=== PATIENT | male | born 1980 | race Hispanic/Latino ===

== ENCOUNTER 2020-07-06 12:59 | Emergency (ER) | payer SELFPAY ==
[2020-07-06 16:41] VITALS: BP 129/75
--- NOTE | 2020-07-06 16:50 | Emergency Department Report ---
ED Extremity Problem HPI - General Chief complaint: Extremity Injury, Lower Stated complaint: FOOT INJURY Time Seen by Provider: 07/06/20 16:37 Source: patient Mode of arrival: Ambulatory Limitations: No Limitations - History of Present Illness Initial comments: Patient is a 39-year-old male presents emergency room complaints of right big toe swelling and pain for the last month and a half. He states he has had this intermittently since having a toe fracture approximately 15 years ago. He states that he was out mowing grass about a month and a half ago and believes he twisted it. He states since then he has had some redness and swelling present. He states that it comes and goes. He denies any fever, chills, nausea, vomiting, diarrhea drainage, numbness, weakness. No past medical history. No allergies medications. - Related Data Previous Rx's Medication Instructions Recorded Last Taken Type Ibuprofen [Motrin] 600 mg PO Q6H PRN #20 tablet 04/23/13 Unknown Rx methOCARBAMOL [Robaxin] 750 mg PO BID #14 tab 04/23/13 Unknown Rx traMADoL [Ultram] 50 mg PO Q6HR PRN #20 tablet 04/23/13 Unknown Rx guaiFENesin/DEXTROMETHORPHAN 10 ml PO Q4HR PRN #118 ml 04/20/16 Unknown Rx [Adult Robitussin Peak Cold Dm] Mupirocin [Bactroban 2% OINT] 1 applic TP TID #1 tube 07/06/20 Unknown Rx Sulfamethoxazole/Trimethoprim 1 each PO BID 7 Days #14 tablet 07/06/20 Unknown Rx [Bactrim DS TAB] Allergies Allergy/AdvReac Type Severity Reaction Status Date / Time No Known Allergies Allergy Verified 07/06/20 16:38 ED Review of Systems ROS: Stated complaint: FOOT INJURY Other details as noted in HPI Comment: All other systems reviewed and negative ED Past Medical Hx - Past Medical History Previous Medical History?: No - Surgical History Additional Surgical History: JAW - Social History Smoking Status: Current Every Day Smoker Substance Use Type: None - Medications Home Medications: Home Medications Medication Instructions Recorded Confirmed Last Taken Type Ibuprofen [Motrin] 600 mg PO Q6H PRN #20 tablet 04/23/13 Unknown Rx methOCARBAMOL [Robaxin] 750 mg PO BID #14 tab 04/23/13 Unknown Rx traMADoL [Ultram] 50 mg PO Q6HR PRN #20 tablet 04/23/13 Unknown Rx guaiFENesin/DEXTROMETHORPHAN 10 ml PO Q4HR PRN #118 ml 04/20/16 Unknown Rx [Adult Robitussin Peak Cold Dm] Mupirocin [Bactroban 2% OINT] 1 applic TP TID #1 tube 07/06/20 Unknown Rx Sulfamethoxazole/Trimethoprim 1 each PO BID 7 Days #14 tablet 07/06/20 Unknown Rx [Bactrim DS TAB] ED Physical Exam - General Limitations: No Limitations General appearance: alert, in no apparent distress - Head Head exam: Present: atraumatic, normocephalic - Eye Eye exam: Present: normal appearance - ENT ENT exam: Present: mucous membranes moist - Respiratory Respiratory exam: Absent: respiratory distress, accessory muscle use - Extremities Exam Extremities exam: Present: other (edema and mild erythema present to the right big toe and right big toe MCP region, no increased warmth, no induration or fluctuance, FROM of the right ankle, foot, and toes, neurovascularly intact, small insect bite to the right lateral foot just below the right big toe) - Neurological Exam Neurological exam: Present: alert, oriented X3 - Psychiatric Psychiatric exam: Present: normal affect, normal mood - Skin Skin exam: Present: warm, dry ED Course Vital Signs 07/06/20 16:40 Temperature 97.6 F Pulse Rate 83 Respiratory 18 Rate Blood Pressure 129/75 O2 Sat by Pulse 100 Oximetry ED Medical Decision Making - Lab Data Result diagrams: 07/06/20 17:01 07/06/20 17:01 Lab Results 07/06/20 07/06/20 Range/Units 17:01 17:01 WBC 13.0 H (4.5-11.0) K/mm3 RBC 5.28 H (3.65-5.03) M/mm3 Hgb 15.2 (11.8-15.2) gm/dl Hct 46.0 H (35.5-45.6) % MCV 87 (84-94) fl MCH 29 (28-32) pg MCHC 33 (32-34) % RDW 12.6 L (13.2-15.2) % Plt Count 404 (140-440) K/mm3 Lymph % (Auto) 28.8 (13.4-35.0) % Gentry % (Auto) 5.9 (0.0-7.3) % Eos % (Auto) 1.5 (0.0-4.3) % Baso % (Auto) 0.4 (0.0-1.8) % Lymph # (Auto) 3.7 (1.2-5.4) K/mm3 Gentry # (Auto) 0.8 (0.0-0.8) K/mm3 Eos # (Auto) 0.2 (0.0-0.4) K/mm3 Baso # (Auto) 0.1 (0.0-0.1) K/mm3 Seg Neutrophils % 63.4 (40.0-70.0) % Seg Neutrophils # 8.2 H (1.8-7.7) K/mm3 Sodium 135 L (137-145) mmol/L Potassium 4.0 (3.6-5.0) mmol/L Chloride 96.9 L (98-107) mmol/L Carbon Dioxide 31 H (22-30) mmol/L Anion Gap 11 mmol/L BUN 10 (9-20) mg/dL Creatinine 0.7 L (0.8-1.3) mg/dL Estimated GFR > 60 ml/min BUN/Creatinine Ratio 14 % Glucose 86 (75-100) mg/dL Uric Acid 7.0 (3.5-7.6) mg/dL Calcium 9.3 (8.4-10.2) mg/dL Total Bilirubin 0.30 (0.1-1.2) mg/dL AST 21 (5-40) units/L ALT 26 (7-56) units/L Alkaline Phosphatase 71 (35-129) units/L C-Reactive Protein 0.30 (0.00-1.30) mg/dL Total Protein 7.5 (6.3-8.2) g/dL Albumin 4.4 (3.9-5) g/dL Albumin/Globulin Ratio 1.4 % - Radiology Data Radiology results: report reviewed Ordering Physician: ELVIA MUNROE Date of Service: 07/06/20 Procedure(s): XR foot 3+V RT Accession Number(s): [id number] cc: ELVIA MUNROE Fluoro Time In Minutes: RIGHT FOOT 3 VIEWS INDICATION / CLINICAL INFORMATION: right big toe swelling and pain COMPARISON: None available. FINDINGS: BONES and JOINT(S): No acute fracture or subluxation. No significant arthritis. SOFT TISSUES: There is mild edema along the right first toe without other significant abnormalities. ADDITIONAL FINDINGS: None. IMPRESSION: Mild right first toe edema. Signer Name: Alejandro Lemon MD Signed: 07/06/2020 5:02 PM Workstation Name: [id number] Transcribed By: MN Dictated By: Alejandro Lemon MD Electronically Authenticated By: Alejandro Lemon MD Signed Date/Time: 07/06/201701 DD/ 01 TD/TT: Print Cancel - Medical Decision Making Patient is a 39-year-old male presents emergency room complaints of right big t oe swelling and pain for the last month and a half. He states he has had this intermittently since having a toe fracture approximately 15 years ago. He states that he was out mowing grass about a month and a half ago and believes he twisted it. He states since then he has had some redness and swelling present. He states that it comes and goes. He denies any fever, chills, nausea, vomiting, diarrhea drainage, numbness, weakness. No past medical history. No allergies medications. vitals are normal. on exam: edema and mild erythema present to the right big toe and right big toe MCP region, no increased warmth, no induration or fluctuance, FROM of the right ankle, foot, and toes, neurovas cularly intact, small insect bite to the right lateral foot just below the right big toe. pt states he did get bit by an insect a few days ago while outside. labs with mild WBC elevation, otherwise stable, normal uric acid, normal CRP. pt has FROM, no clinical signs of infectious tenosynovitis, abscess, or septic joint. symptoms appear most consistent with cellulitis. given prescription for bactrim and mupirocen ointment and discussed the importance of follow up. discussed strict return precautions. advised pt Please use medication as prescribed. Follow-up with a primary care doctor in the next 2 to 3 days for reexamination. Return to emergency room immediately for any new or worsening symptoms including but not limited to worsening pain, worsening swelling, worsening redness, increasing warmth, fever, drainage, chills, etc. Critical care attestation.: If time is entered above; I have spent that time in minutes in the direct care of this critically ill patient, excluding procedure time. ED Disposition Clinical Impression: Insect bite (nonvenomous), right foot, initial encounter, Pain and swelling of toe of right foot Cellulitis Qualifiers: Site of cellulitis: extremity Site of cellulitis of extremity: lower extremity Laterality: right Qualified Code(s): L03.115 - Cellulitis of right lower limb Disposition: - TO HOME OR SELFCARE Is pt being admited?: No Does the pt Need Aspirin: No Condition: Stable Instructions: Cellulitis, Adult, [id number] Additional Instructions: Please use medication as prescribed. Follow-up with a primary care doctor in the next 2 to 3 days for reexamination. Return to emergency room immediately for any new or worsening symptoms including but not limited to worsening pain, worsening swelling, worsening redness, increasing warmth, fever, drainage, chills, etc. Prescriptions: Sulfamethoxazole/Trimethoprim [Bactrim DS TAB] 1 each PO BID 7 Days #14 tablet Mupirocin [Bactroban 2% OINT] 1 applic TP TID #1 tube Referrals: PRIMARY MD HAN [Primary Care Provider] - 2-3 Days ELISHA LANGFORD MD [Staff Physician] - 2-3 Days [facility] [Provider Group] - 2-3 Days Time of Disposition: 18:29 Print Language: GREEK
--- NOTE | 2020-07-06 17:07 | XRay Report ---
RIGHT FOOT 3 VIEWS INDICATION / CLINICAL INFORMATION: right big toe swelling and pain COMPARISON: None available. FINDINGS: BONES and JOINT(S): No acute fracture or subluxation. No significant arthritis. SOFT TISSUES: There is mild edema along the right first toe without other significant abnormalities. ADDITIONAL FINDINGS: None. IMPRESSION: Mild right first toe edema. Signer Name: Alejandro Lemon MD Signed: 07/06/2020 5:02 PM Workstation Name: [id number]
[2020-07-06 17:34] LABS: Basophils # (Auto) 0.1 K/mm3 (0.0-0.1); Basophils % (Auto) 0.4 % (0.0-1.8); Eosinophils # (Auto) 0.2 K/mm3 (0.0-0.4); Eosinophils % (Auto) 1.5 % (0.0-4.3); Hemoglobin 15.2 gm/dl (11.8-15.2); Lymphocytes # (Auto) 3.7 K/mm3 (1.2-5.4); Lymphocytes % (Auto) 28.8 % (13.4-35.0); Mean Corpuscular HGB Conc 33 % (32-34); Mean Corpuscular Volume 87 fl (84-94); Monocytes # (Auto) 0.8 K/mm3 (0.0-0.8); Monocytes % (Auto) 5.9 % (0.0-7.3); Platelet Count 404 K/mm3 (140-440); Red Blood Count 5.28 M/mm3 (3.65-5.03); Red Cell Distribution Width 12.6 % (13.2-15.2)
[2020-07-06 17:54] LABS: Alanine Aminotransferase 26 units/L (7-56); Albumin 4.4 g/dL (3.9-5); Blood Urea Nitrogen 10 mg/dL (9-20); Calcium 9.3 mg/dL (8.4-10.2); Hemolysis Index 19
[2020-07-06 17:56] LABS: BUN/Creatinine Ratio 14
== END 2020-07-06 19:03 | disposition home or self-care (01) ==
LOC: ED 12:59
DX: S90.861A Insect bite (nonvenomous), right foot, initial encounter (principal); L03.115 Cellulitis of right lower limb; F17.200 Nicotine dependence, unspecified, uncomplicated; Z79.899 Other long term (current) drug therapy; W57.XXXA Bitten or stung by nonvenomous insect and other nonvenomous arthropods, initial encounter; Y93.89 Activity, other specified; Y92.89 Other specified places as the place of occurrence of the external cause; Y99.8 Other external cause status
CPT/HCPCS: 36415; 80053; 84550; 85025; 86140; 99283